=== PATIENT | male | born 1970 | race Caucasian/White ===

== ENCOUNTER 2020-02-05 09:38 | Outpatient (CLI) | payer BC, SELFPAY ==
--- NOTE | ~2020-02-05 | US_ITS ---
EXAMINATION: US abdomen complete EXAM DATE: 02/05/2020 10:23 INDICATION: Abdominal firmness. TECHNIQUE: Multiple grayscale and Doppler images of the complete abdomen were obtained (by a technolo gist who performed the scan) and subsequently reviewed. There is no prior study for comparison. FINDINGS: The abdominal aorta is normal in caliber. Visualized portion IVC is patent. The pancreatic head a nd body are normal in appearance. The pancreatic tail is not visualized. The liver has normal echogenicity and contour. There are no focal liver lesions identified. There is no evidence of intrahepatic biliary duct dilation. Portal venous flow was seen in the hepatopedal , normal direction and has normal Doppler waveform. Common bile duct measures 3 mm, which is normal. The gallbladder wall is normal in thickness, with ex pected amount of distention. No sonographic evidence of pericholecystic fluid. There is no cholelit hiases. Small amount of gallbladder adenomyomatosis. Technologist performing exam reports patient did not demonstrate sonographic Cervantes's sign. Please note that this sign is less reliable in patients who have received pain medication. Right kidney: There is normal contour and echogenicity. It measures 10.1 x 4.2 x 4.5 centimeters. There are no focal renal lesions identified. There is no hydronephrosis. Left kidney: There is normal contour and echogenicity. It measures 11.0 x 6.6 x 5.7 centimeters. T here are no focal renal lesions identified. There is no hydronephrosis. The spleen measures 9.7 centimeters and is morphologically normal. IMPRESSION: 1. Small amount of gallbladder adenomyomatosis. 2. Otherwise unremarkable exam. Reviewed, dictated and finalized at location A.
== END 2020-02-05 09:39 | disposition home or self-care (01) ==
LOC: ANHIMG 09:49
PROVIDERS: PCP Family Medicine; Visit Provider Family Medicine
DX: R19.8 Other specified symptoms and signs involving the digestive system and abdomen (principal)
CPT/HCPCS: 76700

== ENCOUNTER 2020-04-05 09:17 | Outpatient (CLI) | payer BC, SELFPAY ==
--- NOTE | 2020-04-28 12:39 | WPDHOMESLEEP ---
Sleep Study - Home Date of Study: 04/05/20 Ordering Provider: Jona Beebe MD Interpreting Physician: Michelle Haile MD Home Sleep Study Type: Apnea Link Air Height: 1.75 m Weight: 99.79 kg Body Mass Index: 32.5 [place]: 6 Reason for Sleep Study Snoring, poor quality sleep Sleep History Nael Angulo is 49 years old 5 ft 9 in is tall weighing 220 lb with a body mass index of 32.4. He has loud snoring and poor quality of sleep. He has not had any evaluation or treatment in the past. This is been going on for longer than 2 years. It is moderately disturbing, as he wakes up during the night, in the audiologist hours and has excessive daytime sleepiness. He constantly snores and is constantly loud enough that others complain about it. He rarely awakens at night with heartburn and belching or coughing. He rarely awakens at night feeling short of breath. He rarely has trouble sleeping with a cold. He does not wake up gasping for breath at night. He occasionally has breathing problems at night observed by others, occasionally sweats excessively at night. He does not notice his heart pounding or beating irregularly at night, does not fall asleep during the day, involuntarily, while driving, or with physical effort. he does not have loss of muscle tone with strong emotion. He does not have daytime difficulties due to excessive sleepiness. He does not feel paralyzed on waking or falling asleep and does not have vivid dreamlike scenes upon awakening or falling asleep. He has never free to go to sleep. He occasionally has nightmares occasionally remembers his dreams. He frequently has racing thoughts. he occasionally has feelings of sadness depression and anxiety. He rarely notices parts of his body jerking, rarely kicks at night really has crawling and aching feelings in his legs and rarely has leg pain at night. He does not and jaw pain. He does not grind his teeth during sleep. He occasionally has bothered by pain during the day. He has never awakened by pain during the night. He rarely wakes up feeling stiff in the morning with sore achy muscles rarely has pain in the neck and spine in the morning. He feels tense and has panic at times. He has daytime fatigue. Normal bedtime is 10-11 p.m. falling asleep within just a minute waking 1 or 2 times at night for 5 minutes. During this time he will go to the bathroom. He wakes for the day between 4 and 5:00 a.m. Weekend schedule is the same. He does not take naps. Most of the time he feels adequate in the morning. He feels better in the morning compared to other times of day. Habits: tobacco 1 pack per day. Caffeine 3 cups per day. No alcohol. No recreational drugs. Medications vitamin E 100 units 4 capsules daily coenzyme Q10 2 tablets daily dicyclomine 10 mg daily [facility] Past Medical History Medical History (Updated 04/28/20 @ 13:11 by Michelle Haile MD) Elevated fasting glucose Gait disturbance Hereditary ataxia Hyperlipidemia Low back pain Plantar fasciitis Slow rate of speech Surgical History Surgical History (Updated 04/28/20 @ 12:56 by Michelle Haile MD) History of carpal tunnel surgery History of rotator cuff surgery S/P cubital tunnel release S/P hernia surgery Family History Family History (Updated 04/03/13 @ 08:18 by DOCTOR UNKNOWN) Other Family history of alcoholism Family history of arthritis Family history of gout Social History Social History (Updated 04/28/20 @ 12:44 by Michelle Haile MD) Smoking packs per day: 1 Smoking cigarettes per day: 20.0 Smoking status: Current every day smoker Alcohol intake: never Substance use type: does not use Sleep Procedure This test was performed using 4 channel monitoring including respiratory effort channel snoring channel heart rate channel and oxygen saturation channel. This study was scored using CMS guidelines. the duration of the study was 6 hours 32 minutes
[2020-04-28 13:12] VITALS: BMI 32.5
== END 2020-04-05 09:18 | disposition home or self-care (01) ==
LOC: ANHCSM 09:17
PROVIDERS: PCP Family Medicine; Visit Provider Family Medicine
DX: G47.33 Obstructive sleep apnea (adult) (pediatric) (principal); Z68.32 Body mass index [BMI] 32.0-32.9, adult
CPT/HCPCS: 95806